=== PATIENT | male | born 1970 | race Caucasian/White ===

== ENCOUNTER 2017-06-20 02:55 | Emergency (ER) | payer SELFPAY ==
[~2017-06-20] VITALS: Ht 177.8 cm; Wt 90.7 kg
[~2017-06-20 02:55] MED LIST: HYDR-79 PO; HYDR-971 PO; SULF1TAB24 PO; TRAM50TA PO
[2017-06-20 03:00] VITALS: BP 143/65
[2017-06-20] MEDS ORDERED: LIDOCAINE 1%/EPI 1:100,000 20 ML VIAL. INJ ONE (03:00)
[2017-06-20] MEDS ORDERED: diazePAM 5 MG TABLET PO ONE (03:00)
[2017-06-20] MEDS ORDERED: IBUPROFEN 600 MG TABLET. PO ONE (03:00)
[2017-06-20] MEDS ORDERED: LIDOCAINE 1% / SOD BICARB 8.4% 20 ML VIAL. IJ ONE (03:11)
[2017-06-20] MEDS ORDERED: HYDROcodone/APAP 5/325MG 1 TAB TABLET PO ONE (04:00)
[2017-06-20] MEDS ORDERED: CEPH-264 PO (04:10)
[2017-06-20] MEDS ORDERED: HYDR-971 PO (04:10)
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
== END 2017-06-20 04:16 | disposition home or self-care (01) ==
LOC: ER 02:55
DX: S41.012A Laceration without foreign body of left shoulder, initial encounter (principal); G89.29 Other chronic pain; Z86.19 Personal history of other infectious and parasitic diseases; W26.8XXA Contact with other sharp object(s), not elsewhere classified, initial encounter; Y93.89 Activity, other specified; Y92.89 Other specified places as the place of occurrence of the external cause; Y99.8 Other external cause status
CPT/HCPCS: 12001; 73030; 99284; J3490

== ENCOUNTER → 2017-09-18 | Outpatient (CLI) | payer OTHER | END | disposition home or self-care (01) | LOC: RAD 09:18 | DX: M51.37 Other intervertebral disc degeneration, lumbosacral region (principal); J44.9 Chronic obstructive pulmonary disease, unspecified | CPT/HCPCS: 71046; 72100 ==

== ENCOUNTER 2017-10-01 13:38 | Emergency (ER) | payer SELFPAY, OTHER ==
[2017-10-01] MEDS: HYDROcodone/APAP 5/325MG 1 TAB TABLET PO (15:56)
== END 2017-10-01 16:00 | disposition home or self-care (01) ==
LOC: ER 13:38
DX: L03.114 Cellulitis of left upper limb (principal); G89.29 Other chronic pain; Z86.19 Personal history of other infectious and parasitic diseases; Z88.6 Allergy status to analgesic agent
CPT/HCPCS: 99283